=== PATIENT | female | born 1995 | race African-American/Black ===

== ENCOUNTER 2016-11-16 17:12 | Emergency (ER) | payer MEDICAID ==
[2016-11-16 17:26] VITALS: BP 108/74
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
== END 2016-11-16 18:06 | disposition home or self-care (01) ==
LOC: ER 17:12
DX: M79.641 Pain in right hand (principal); F17.210 Nicotine dependence, cigarettes, uncomplicated; X50.3XXA Overexertion from repetitive movements, initial encounter

== ENCOUNTER 2016-12-29 14:44 | Emergency (ER) | payer MEDICAID ==
[2016-12-29 15:06] VITALS: BP 127/89
--- OUTSIDE RECORDS SUMMARY | 2016-12-29 16:31 | XMS REPORT | Summary of Care ---
:1995 Author Organization [facility] Address [address] [place] [address] Care Team Providers Name Role Phone Vin Watkins Primary Care Physician Encounter Date(s): 11/24/16 - 11/24/16 [facility] [address] [place], [place] [address] Discharge Disposition: 01 Discharged to Home or Self Care Attending Physician: Cate Cullen, PAC Referring Physician: Vin Watkins MD, FAAFP Vital Signs Most recent to oldest [Reference Range]: 1 Peripheral Pulse Rate [60-100 bpm] 81 bpm (11/24/16 11:04 AM) Blood Pressure [90-130/60-90 mmHg] 115/79mmHg (11/24/16 11:04 AM) Mean Arterial Pressure, Cuff 91 mmHg (11/24/16 11:04 AM) Height/Length Measured 160 cm (11/24/16 11:04 AM) Weight Dosing 57.4 kg (11/24/16 11:04 AM) Weight Measured 57.4 kg (11/24/16 11:04 AM) BSA Measured 1.59 m2 (11/24/16 11:04 AM) Body Mass Index Measured 22.42 kg/m2 (11/24/16 11:04 AM) Problem List No data available for this section Allergies, Adverse Reactions, Alerts No Known Medication Allergies Medications ADVAIR DISKU AER 100/50 0 Refill(s), Supply Start Date: 11/24/16 Status: Orderednaproxen 500 mg oral tablet 1 tab(s), Oral, BID, PRN pain with food, # 60 tab(s), 1 Refill(s), Start Date: 11/24/16 11:18:00 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, Pharmacy: [facility] [id number] Start Date: 11/24/16 Status: OrderedNAPROXEN 500 MG TABS 0 Refill(s), Supply Start Date: 11/24/16 Stop Date: 11/24/16 Status: DiscontinuedPROAIR HFA 108 MCG/ACT AERS 0 Refill(s), Supply Start Date: 11/24/16 Status: OrderedTRAMADOL HCL 50 MG TABS 0 Refill(s), Supply Start Date: 11/24/16 Status: Ordered Results No data available for this section Immunizations No data available for this section Procedures No data available for this section Social History No data available for this section Assessment and Plan No data available for this section
== END 2016-12-29 15:31 | disposition left against medical advice (07) ==
LOC: ER 14:44
DX: Z53.21 Procedure and treatment not carried out due to patient leaving prior to being seen by health care provider (principal)

== ENCOUNTER 2017-01-30 22:32 | Emergency (ER) | payer SELFPAY ==
--- NOTE | 2017-01-31 00:52 | ERNOTE ---
ENT HPI Date of Service: 01/31/17 Presenting Symptoms: other - R EAR PAIN AND DECREASED HEARING. Time Seen by Provider: 01/31/17 00:51 Source: patient - Immun/Allergies/Home Medications Immunizations: IMMUNIZATION HX Immunizations Up to Date Yes History of Influenza Vaccine No Hx Pneumococcal Vaccination No Allergies/Adverse Reactions: Allergies Allergy/AdvReac Type Severity Reaction Status Date / Time No Known Allergies Allergy Verified 01/30/17 22:45 Home Medications: HOME MEDICATIONS Albuterol Sulfate [Proair Hfa] 2 puff IH QID PRN 07/29/16 [Last Taken Unknown] Fluticasone/Salmeterol [Advair 250-50 Diskus] 1 puff IH BID #1 inhaler 07/29/16 [Last Taken Unknown] - History of Present Illness Narrative: PT SAYS SHE HAS HAD RIGHT EAR DISCOMFORT AND DECREASED HEARING SINCE SHE GOT UP THIS MORNING. NO FEVER. NO TRAUMA. SHE DENIES AND UPPER AIRWAY STUFFINESS. SHE IS AN ASTHMATIC AND ON PRO AIR AND ADVAIR ROUTINELY. SHE SAYS SHE HAS NEVER BEEN DIAGNOSED WITH ALLERGIC RHINITIS / HAY FEVER. I EXPLAINED THAT MOST ASTHMATICS HAVE SOME COMPONENT BUT SHE SAYS NO ONE EVER TREATED HER FOR THAT . Severity: Present: moderate ENT Location: Present: ear (R) Review of Systems - Review of Systems Constitutional: Present: See HPI EYE: Present: no symptoms reported ENT: Present: ear pain - HEARING ON THE RIGHT SINCE THIS MORNING. Respiratory: Present: no symptoms reported All Other Systems: All systems neg except as marked - Patient's Past Medical History Patient History - Medical: Anxiety, Depression Patient History - Cardiac/Respiratory: Asthma Patient History - Cancer: No Hx of Cancer Patient History - Surgical Procedures: No surgical history Patient History - Other: None LMP (females 10-50): last week LMP (Calendar): 06/16/16 - Social History Living Situations: home Psych History: Hx of Anxiety, Hx of Depression Smoking Status: Former smoker Alcohol Use: occasionally Drug Use: marijuana - Immunizations Immunizations Up to Date: Yes Hx Pneumococcal Vaccination: No History of Influenza Vaccine: No Physical Exam - Physical Exam General Appearance: Present: wd/wn, alert, no apparent distress Eye Exam: Normal inspection: bilateral, PERRL: bilateral, EOMI: bilateral Ears, Nose, Throat: Present: nasal congestion, normal pharynx, other - LEFT TM WITH NO SIGN OF ERYTHEMA OR BULGING, SOME CERUMEN PRESENT. RIGHT TM NOT WELL SEEN WITH MORE CERUMEN BUT NOT COMPLETE BLOCKAGE. THERE IS NO OBVIOUS TM ERYTHEMA OR DRAINAGE. EXAM OF THE NOSE SHOW BILATERAL MUCOSAL ERYTHEMA AND SWELLING AND ONLY A SLIT LIKE OPENING WITH MARKED CONGESTION THOUGH SHE DENIES BEING STUFFY BUT HAS OBVIOUS STUFFINESS THROUGH EACH NOSTRIL R > L. I SUSPECT SHE IS CHRONICALLY STUFFY AND NOT RECOGNIZING THAT THIS IS NOT NORMAL. POST PHAYRNX IS NORMAL EXCEPT MILD POST NASAL DRAINAGE. Neck: Present: normal inspection, nontender ED Progress - Vital Signs Vital Signs: Vital Signs 01/30/17 22:41 Temperature 36.8 C Pulse Rate 74 Respiratory 16 Rate Blood Pressure 131/88 O2 Sat by Pulse 100 Oximetry - Progress/Reassessment Chief Complaint: Earache Departure Clinical Impression: Eustachian tube dysfunction - Departure Disposition: Home self-care Condition: Good Instructions: Serous Otitis Media Additional Instructions: YOU HAVE SO MUCH UPPER AIRWAY MUCOUS EDEMA( SWELLING) AND INFLAMMATION IT IS CAUSING THE EUSTACHIAN TUBE TO NOT WORK PROPERLY AND YOU ARE COLLECTING FLUID IN THE MIDDLE EAR. I NO NOT THINK THIS IS A MIDDLE EAR INFECTION . TO HELP CLEAR THIS USE AFRIN OR DEVI-SYNEPHRINE NASAL SPRAY, FOR ONLY 3 DAYS, TO HELP START RELIEVING THE CONGESTION. IN ORDER TO GET PENITENTIARY CONTROL OF THE CONGESTION ALSO STAR USING FLONASE OR NASONEX AVAIALBLE OVER THE COUNTER. START OUT WITH 2 PUFF TO EACH NOSTRIL TWICE A DAY FOR ONE WEEK THEN DECREASE TO ONCE A DAY FOR LONG YOU NEED TO CONTROL THE STUFFINESS, MUCH YOU USE YOUR ADVAIR TO CONTROL THE ASTHMA. RECHECK WITH YOUR FAMILY DOCTOR IF WORSE OR IT IS NOT GRADUALLY IMPROVING AFTER 1-2 WEEKS. Referrals: Vin Watkins MD [Primary Care Provider] -
--- OUTSIDE RECORDS SUMMARY | 2017-01-31 01:02 | XMS REPORT | Summary of Care ---
:1995 Author Organization [facility] Address [address] [place] [address] Care Team Providers Name Role Phone Vin Watkins Primary Care Physician Encounter Date(s): 12/18/16 - 12/18/16 [facility] [address] [place], [place] [address] Discharge Diagnosis: Chronic pain of right hand Discharge Disposition: 01 Discharged to Home or Self Care Attending Physician: Jereym Quintana MD Referring Physician: Jeremy Quintana MD Vital Signs Most recent to oldest [Reference Range]: 1 Peripheral Pulse Rate [60-100 bpm] 96 bpm (12/18/16 9:58 AM) Blood Pressure [90-130/60-90 mmHg] 106/74mmHg (12/18/16 9:58 AM) Mean Arterial Pressure, Cuff 85 mmHg (12/18/16 9:58 AM) Most recent to oldest [Reference Range]: 1 Height/Length Measured 160 cm (12/18/16 9:58 AM) Weight Dosing 57.40 kg1 (12/18/16 10:00 AM) Weight Measured 57.4 kg (12/18/16 9:58 AM) BSA Measured 1.59 m2 (12/18/16 9:58 AM) Body Mass Index Measured 22.42 kg/m2 (12/18/16 9:58 AM) 1Result Comment: This result was because the dosing weight was either not entered or it is>30 days old. This result is based off: Weight Measured December 18, 2016 09:58:00 [employer] CONSULTANT by Amina William CMA Problem List Condition Effective Dates Status Health Status Informant Chronic pain of right hand(Confirmed) Active Allergies, Adverse Reactions, Alerts No Known Medication Allergies Medications ADVAIR DISKU AER 100/50 0 Refill(s), Supply Start Date: 11/24/16 Status: Orderednaproxen 500 mg oral tablet 1 tab(s), Oral, BID, PRN pain with food, # 60 tab(s), 1 Refill(s), Start Date: 11/24/16 11:18:00 [employer] CONSULTANT, [facility] Special Instructions: PRN pain with food Start Date: 11/24/16 Status: OrderedNAPROXEN 500 MG [...]
[2017-01-31 01:31] VITALS: BP 122/80
== END 2017-01-31 01:29 | disposition home or self-care (01) ==
LOC: ER 22:32
DX: H69.90 Unspecified Eustachian tube disorder, unspecified ear (principal); J45.909 Unspecified asthma, uncomplicated

== ENCOUNTER 2017-05-09 11:13 | Emergency (ER) | payer SELFPAY ==
[2017-05-09] MEDS ORDERED: KETOROLAC TROMETHAMINE 60 MG/2 ML VIAL IM ONE ×2 (11:41→11:50)
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
[2017-05-09] MEDS ORDERED: ONDANSETRON HCL/PF 2 MG/ML VIAL IV ONE (12:41)
[2017-05-09] MEDS ORDERED: LORazepam 2 MG/ML DISP.SYRIN IV ONE (12:41)
[2017-05-09] MEDS ORDERED: NORMAL SALINE 1,000 ML IV ONE (12:42)
[2017-05-09] MEDS ORDERED: ONDANSETRON HCL/PF 2 MG/ML VIAL ONE (12:54)
[2017-05-09] MEDS ORDERED: LORazepam 2 MG/ML DISP.SYRIN ONE (12:54)
[2017-05-09 13:40] VITALS: BP 104/76
== END 2017-05-09 13:40 | disposition short-term general hospital (02) ==
LOC: ER 11:13
DX: S06.6X9A Traumatic subarachnoid hemorrhage with loss of consciousness of unspecified duration, initial encounter (principal); V49.9XXA Car occupant (driver) (passenger) injured in unspecified traffic accident, initial encounter; M54.2 Cervicalgia; Z87.891 Personal history of nicotine dependence
CPT/HCPCS: 70450; 72125; 96365; 96372; 96375; 99284; J2405

== ENCOUNTER 2017-05-13 17:33 | Emergency (ER) | payer SELFPAY ==
[2017-05-13] MEDS ORDERED: ACETAMINOPHEN 325 MG TABLET PO ONE (18:26)
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
[2017-05-13] MEDS ORDERED: ACETAMINOPHEN 325 MG TABLET ONE (18:31)
[2017-05-13 20:08] VITALS: BP 119/81
== END 2017-05-13 19:55 | disposition home or self-care (01) ==
LOC: ER 17:33
DX: S06.0X0D Concussion without loss of consciousness, subsequent encounter (principal); V49.9XXD Car occupant (driver) (passenger) injured in unspecified traffic accident, subsequent encounter

== ENCOUNTER 2017-06-22 02:14 | Emergency (ER) | payer SELFPAY ==
--- NOTE | 2017-06-22 02:53 | ERNOTE ---
Abdominal HPI - General Chief Complaint: Abdominal Pain Time Seen by Provider: 06/22/17 02:35 Source: patient Exam Limitations: no limitations - Immun/Allergies/Home Medications Immunizatons: IMMUNIZATION HX Immunizations Up to Date Yes History of Influenza Vaccine No Hx Pneumococcal Vaccination No Allergies/Adverse Reactions: Allergies No Known Allergies Allergy (Verified 06/22/17 02:28) Home Medications: HOME MEDICATIONS Albuterol Sulfate [Proair Hfa] 2 puff IH QID PRN 07/29/16 [Last Taken Unknown] Fluticasone/Salmeterol [Advair 250-50 Diskus] 1 puff IH BID #1 inhaler 07/29/16 [Last Taken Unknown] Ciprofloxacin HCl [Cipro] 500 mg PO BID #20 tab 06/22/17 [Last Taken Unknown] Phenazopyridine HCl [Pyridium] 100 mg PO TID #10 tablet 06/22/17 [Last Taken Unknown] - History of Present Illness Narrative: Pt states she was dancing 2 days ago and began to have RLQ abd pain. She was unsure if she pulled a muscle or had other abdominal pain. The next day she had diarrhea with blood in it. Abdominal pain continues Timing: getting worse Quality: moderate, severe Activities at Onset: activity - dancing Modifying Factors - (Improves): Present: sitting up Modifying Factors - (Worsens): Present: lying down, movement Associated Symptoms: Present: other - diarrhea with small amount of blood Prior Abdominal Problems: Present: none Review of Systems - Review of Systems Constitutional: Present: chills - today EYE: Present: no symptoms reported ENT: Present: no symptoms reported Respiratory: Absent: shortness of breath Cardiology: Absent: chest pain Gastrointestinal/Abdominal: Present: See HPI. Absent: nausea, vomiting Genitourinary: Absent: frequency, dysuria Musculoskeletal: Absent: back pain Skin: Absent: rash Neurological: Present: no symptoms reported Endocrine: Present: no symptoms reported Hematologic/Lymphatic: Present: no symptoms reported Psych: Present: no symptoms reported - Patient's Past Medical History Patient History - Medical: Anxiety, Depression Patient History - Cardiac/Respiratory: Asthma Patient History - Cancer: No Hx of Cancer Patient History - Surgical Procedures: No surgical history Patient History - Other: None LMP (females 10-50): unknown LMP (Calendar): 06/16/16 - Social History Living Situations: other Abuse History: No History of abuse Psych History: Hx of Anxiety, Hx of Depression Smoking Status: Current every day smoker Have you smoked in the past 12 months: Yes Do you dip or chew tobacco: No Alcohol Use: occasionally Drug Use: marijuana - Immunizations Immunizations Up to Date: Yes Hx Pneumococcal Vaccination: No History of Influenza Vaccine: No Physical Exam - Physical Exam General Appearance: Present: wd/wn, alert, mild distress Head Exam: Present: normal inspection, no evidence of injury Eye Exam: Normal inspection: bilateral Neck: Present: normal inspection, supple Respiratory: Present: no respiratory distress, no accessory muscle use Cardiovascular/Chest: Present: regular rate, rhythm Gastrointestinal/Abdominal: Present: tenderness - RUQ and RLQ, abnormal bowel sounds - hypoactive, guarding - mild . Absent: rebound Rectal Exam: Present: nontender, normal rectal tone. Absent: mass, fecal impaction Extremity Exam: Present: normal inspection, non-tender, normal range of motion Neurological Exam: Present: alert, oriented, normal mood/affect, no motor/ sensory deficits Skin Exam: Present: normal color, warm/dry ED Progress - Results and Orders Patient's Lab Results:: I have reviewed the patient's lab results. Results and Orders: Laboratory Tests 06/22/17 06/22/17 06/22/17 02:45 03:20 03:20 WBC 11.5 H Hgb 11.2 L Hct 33.2 L Plt Count 462 H Sodium 140 Potassium 3.9 Chloride 105 Carbon Dioxide 28.5 BUN 7 Creatinine 1.02 Random Glucose 101 Calcium 8.2 Total Bilirubin 0.3 AST 8 ALT 9 L Alkaline Phosphatase 75 Total Protein 7.6 Albumin 3.1 L Amylase 69 Lipase 48 L Serum HCG, Qual Urine Color Urine Appearance Urine pH Ur Specific [place] Urine Protein Urine Glucose (UA) Urine Ketones Urine Blood Urine Nitrate Urine Bilirubin Urine Urobilinogen Ur Leukocyte Esterase Urine RBC Urine WBC Ur Epithelial Cells Urine Bacteria Urine Mucus Urine Culture Comments Stool Occult Blood Negative 06/22/17 06/22/17 03:20 03:30 WBC Hgb Hct Plt Count Sodium Potassium Chloride Carbon Dioxide BUN Creatinine Random Glucose Calcium Total Bilirubin AST ALT Alkaline Phosphatase Total Protein Albumin Amylase Lipase Serum HCG, Qual Negative Urine Color Yellow Urine Appearance Clear Urine pH 5.5 Ur Specific [place] >=1.030 Urine Protein Negative Urine Glucose (UA) Negative Urine Ketones Negative Urine Blood 50 H Urine Nitrate Negative Urine Bilirubin Negative Urine Urobilinogen Normal Ur Leukocyte Esterase 100 H Urine RBC None seen Urine WBC 10-25 H Ur Epithelial Cells 10-25 H Urine Bacteria 2+ H Urine Mucus Moderate - 2+ H Urine Culture Comments Culture to follow Stool Occult Blood - Vital Signs Patient's Vital Signs:: I have reviewed the patient's vital signs. Vital Signs: Vital Signs 06/22/17 02:22 Temperature 37.5 C Pulse Rate 110 H Respiratory 14 Rate Blood Pressure 93/59 O2 Sat by Pulse 97 Oximetry - X-Ray X-Ray #1 X-Ray: abdomen Interpretation: Interp. by wa X-ray Comments: non specific, non obstructive gas pattern, minimal retained stool. no free air. - Progress/Reassessment Chief Complaint: Abdominal Pain Departure - Departure Clinical Impression: Pyelonephritis Disposition: Home self-care Condition: Good Instructions: Pyelonephritis, Adult, [id number] Prescriptions: Ciprofloxacin HCl [Cipro] 500 mg PO BID #20 tab Phenazopyridine HCl [Pyridium] 100 mg PO TID #10 tablet
[2017-06-22] MEDS ORDERED: KETOROLAC TROMETHAMINE 60 MG/2 ML VIAL IM ONE ×2 (03:28→03:30)
[2017-06-22 03:32] LABS: Hematocrit 33.2 % (37.0-47.0); Hemoglobin 11.2 gm/dL (12.5-16.0); Mean Cell Volume 99.1 fl (78-100); Mean Corpuscular Hemoglobin 33.4 pg (27-31); Mean Corpuscular Hgb Conc 33.7 g/dl (32-36); Platelet Count 462 K/mm3 (150-450); Red Blood Count 3.35 M/mm3 (4.2-5.4); Red Cell Distribution Width 12.4 % (11.5-14.0); White Blood Count 11.5 K/mm3 (4.0-10.5)
[2017-06-22 03:36] LABS: Urine Bilirubin Negative (NEGATIVE); Urine Blood 50 /ul (NEGATIVE); Urine Ketone Negative (NEGATIVE); Urine Nitrite Negative (NEGATIVE); Urine Protein Negative (NEGATIVE); Urine Specific Gravity >=1.030 SP.GR. (1.005-1.010); Urine Urobilinogen Normal (NORMAL); Urine pH 5.5 pH (5.0-7.0)
[2017-06-22 03:40] LABS: Total Cells Counted 100
[2017-06-22 03:48] LABS: Urine Appearance Clear; Urine Bacteria 2+; Urine Color Yellow; Urine Mucus Moderate - 2+; Urine RBC None Seen /hpf (0-5)
[2017-06-22 03:53] LABS: Albumin * 3.1 gm/dl (3.4-5.0); Anion Gap 10.4 mmol/L (6.8-13.8); BUN/Creatinine Ratio 6.9 (9.0-21.6); Bilirubin, Total 0.3 mg/dL (0.0-1.1); Ca. Corrected For Albumin 8.6 mg/dL (8.4-10.2); Calcium * 8.2 mg/dL (7.9-10.9); Carbon Dioxide 28.5 mmol/L (24-32.6); Potassium 3.9 mmol/L (3.4-4.6); Total Protein 7.6 gm/dL (6.2-8.2)
[2017-06-22 03:55] LABS: Band 1 % (0-2.0); Eosinophil 1 % (0-3); Lymphocyte 20 % (20-51); Monocyte 7 % (0-9); Neutrophil 71 % (42-75); Neutrophil # 8.2 K/mm3 (1.3-6.0)
[2017-06-22 03:56] LABS: Platelet Estimate Normal (NORMAL); RBC Morphology Normal (NORMAL)
[2017-06-22] MEDS ORDERED: CIPROFLOXACIN HCL 250 MG TABLET PO ONE (05:02)
[2017-06-22] MEDS ORDERED: PHENAZOPYRIDINE HCL 100 MG TABLET PO ONE (05:02)
[2017-06-22] MEDS ORDERED: CIPROFLOXACIN HCL 250 MG TABLET ONE (05:04)
[2017-06-22] MEDS ORDERED: PHENAZOPYRIDINE HCL 100 MG TABLET ONE (05:04)
[2017-06-22 05:21] VITALS: BP 89/56
== END 2017-06-22 05:17 | disposition home or self-care (01) ==
LOC: ER 02:14
DX: N12 Tubulo-interstitial nephritis, not specified as acute or chronic (principal); F17.200 Nicotine dependence, unspecified, uncomplicated; J45.909 Unspecified asthma, uncomplicated